=== PATIENT | female | born 1950 | race Caucasian/White ===

== ENCOUNTER 2019-10-22 07:15 | Day surgery (SDC) | payer OTHER ==
[2019-10-20 15:52] VITALS: BMI 23.0
[2019-10-22] MEDS ORDERED: PROPOFOL 20 ML ONE ×2 (07:47)
[2019-10-22] MEDS ORDERED: LIDOCAINE HCL/PF 2% SDV 5ML VIAL ONE (07:47)
[2019-10-22 08:58] VITALS: TEMP 97.8
[2019-10-22 09:32] VITALS: PULSE 61
[2019-10-22 09:35] VITALS: BP 100/65
--- NOTE | 2019-10-23 16:09 | PATH ---
Surgical Pathology Report Patient Name: DIONISIO LOPEZ [facility]. Rec. #: [id number] /Age/Gender: 1950 (Age: 69) / F Account: [id number] [facility] 10/22/2019 Received: 10/22/2019 Reported: 10/23/2019 Physicians: Davion Gray M.D. Specimen(s) Received CECUM POLYP Clinical History History of polyps Postoperative diagnosis: Colon polyp, diverticulosis Final Diagnosis CECUM POLYP, POLYPECTOMY: TUBULAR ADENOMA. Electronically Signed Amalia Gomez M.D. Gross Description Received in formalin, labeled "hot snare polypectomy cecum" is a blount, irregular portion of soft tissue measuring 0.4 cm. in greatest dimension. The specimen is submitted in toto in one cassette. 10/22/2019 [facility]2019
== END 2019-10-22 09:36 | disposition home or self-care (01) ==
LOC: FASU-ENDO 07:15
PROVIDERS: ATTEND Internal Medicine Gastroenterology
PROC: 0DBH8ZX Excision of Cecum, Via Natural or Artificial Opening Endoscopic, Diagnostic (ICD-10-PCS; principal; 2019-10-22 08:26)
DX: Z86.010 Personal history of colon polyps (principal); D12.0 Benign neoplasm of cecum; K57.30 Diverticulosis of large intestine without perforation or abscess without bleeding